=== PATIENT | female | born 1970 | race Caucasian/White ===

== ENCOUNTER 2023-07-04 11:23 | Emergency (ER) | payer MEDICAID ==
[~2023-07-04] VITALS: Ht 167.6 cm; Wt 123.1 kg
[2023-07-04 12:03] VITALS: BP 121/85; PULSE 87; RESP 18; TEMP 97.5; O2SAT 98
== END 2023-07-04 13:25 | disposition left against medical advice (07) ==
LOC: ER 11:24
DX: R10.31 Right lower quadrant pain (principal); Z53.21 Procedure and treatment not carried out due to patient leaving prior to being seen by health care provider
CPT/HCPCS: 99281

== ENCOUNTER 2023-09-06 02:59 | Emergency (ER) | payer MEDICAID, OTHER ==
[~2023-09-06] VITALS: Ht 170.2 cm; Wt 113.6 kg
[2023-09-06] MEDS ORDERED: ketorolac trometh inj. 60 MG/2 ML VIAL IM ONE (03:50)
[2023-09-06] MEDS ORDERED: HYDR-3965 PO ×2 (03:52→06:39)
[2023-09-06] MEDS ORDERED: IBUP-1984 PO (03:52)
[2023-09-06] MEDS: acetaminophen 325mg tablet PO ONE (03:57)
[2023-09-06] MEDS: ketorolac tromethamine 15mg/ml inj. IM ONE (03:58)
[2023-09-06 04:05] VITALS: BP 160/78; PULSE 84; RESP 16; TEMP 98.5; O2SAT 96
== END 2023-09-06 04:07 | disposition home or self-care (01) ==
LOC: ER 03:00
DX: M25.511 Pain in right shoulder (principal); Z88.1 Allergy status to other antibiotic agents
CPT/HCPCS: 96372; 99284; J1885; A4565

== ENCOUNTER 2023-11-03 08:49 | Outpatient (CLI) | payer MEDICAID | END 2023-11-03 23:59 | disposition home or self-care (01) | LOC: MRI 08:49 | PROVIDERS: ATTEND Family Medicine | DX: M75.101 Unspecified rotator cuff tear or rupture of right shoulder, not specified as traumatic (principal); M25.511 Pain in right shoulder; M25.411 Effusion, right shoulder | CPT/HCPCS: 73221 ==

== ENCOUNTER 2023-11-22 16:05 | Outpatient (CLI) | payer MEDICAID | END 2023-11-22 23:59 | disposition home or self-care (01) | LOC: RAD 16:05 | PROVIDERS: ATTEND Nurse Practitioner | DX: J18.9 Pneumonia, unspecified organism (principal); M47.814 Spondylosis without myelopathy or radiculopathy, thoracic region; E78.5 Hyperlipidemia, unspecified; E11.42 Type 2 diabetes mellitus with diabetic polyneuropathy; E11.69 Type 2 diabetes mellitus with other specified complication; E03.9 Hypothyroidism, unspecified; N17.9 Acute kidney failure, unspecified | CPT/HCPCS: 71250 ==

== ENCOUNTER 2023-12-11 12:22 | Outpatient (CLI) | payer MEDICAID ==
[2023-12-11] MEDS ORDERED: GADOTERATE MEGLUMINE 7.5 MMOL/15 ML VIAL IV ONE (14:41)
== END 2023-12-11 23:59 | disposition home or self-care (01) ==
LOC: MRI 12:22
PROVIDERS: ATTEND Nurse Practitioner
DX: I67.82 Cerebral ischemia (principal); G31.9 Degenerative disease of nervous system, unspecified; R90.82 White matter disease, unspecified; R41.3 Other amnesia; G93.2 Benign intracranial hypertension
CPT/HCPCS: 70553; A9575